=== PATIENT | male | born 1965 | race Caucasian/White ===

== ENCOUNTER 2024-09-24 18:45 | Emergency (ER) | payer MEDICAID, SELFPAY ==
[2024-09-24 19:26] VITALS: BP 164/93; PULSE 99; RESP 17; TEMP 36.7; O2SAT 96
[2024-09-24 19:27] VITALS: BMI 40.4
--- NOTE | 2024-09-24 19:31 | XR_ITS ---
Examination: CT abdomen and pelvis without contrast. Coronal 3-D reconstructions. Sagittal 2-D reconstructions. Date and time of exam:September 24, 2024 1952 hrs. Comparison July 05, 2024 Indications: Left lower abdominal pain beginning 4 days ago CTDI: vol (mGy): 16.2 DLP: (mGycm): 1025 Technique: Axial images of the abdomen have been obtained, 3 mm slice thickness Intravenous contrast material has not been administered. Low dose protocols were performed. One or more of the following dose reduction techniques were used; automated exposure control, adjustment of the mA and/or KV according to patient size, use of iterative reconstruction technique. Findings: Cirrhosis, liver nodular in contour, no focal liver lesions No gallstones No splenic or pancreatic lesion 20 mm right adrenal nodule likely adenoma No renal or ureteral calculi, no hydronephrosis Normal appendix No bowel obstruction Contracted urinary bladder No significant prostatomegaly Moderate osteopenia Impression: Cirrhosis, no focal liver lesions No renal or ureteral calculi, no hydronephrosis Normal appendix No bowel obstruction
--- NOTE | 2024-09-24 19:32 | PD.EDRME ---
Rapid Medical Screening Exam E Arrival date/time: 09/24/24 18:45 59-year-old male with past medical history of umbilical hernia repair reports complaining of left lower quadrant pain with nausea that started 3 days ago. Chief Complaint: Abdominal Pain Time Seen by Provider: 09/24/24 19:22 Vital signs: Vital Signs Temperature 98.1 F 09/24/24 19:26 Pulse Rate 99 09/24/24 19:26 Respiratory Rate 17 09/24/24 19:26 Blood Pressure 164/93 H 09/24/24 19:26 Pulse Oximetry (%) 96 09/24/24 19:26 Oxygen Delivery Method Room Air 09/24/24 19:26 Vital signs reviewed by provider: Yes
[2024-09-24 21:03] LABS: Collection Type, Urine Clean Catch
[2024-09-24 21:04] LABS: Basophils % (Auto) 0 % (0-2.5); Eosinophils % (Auto) 1 % (0-10); Hematocrit 36.9 % (41.0-53.0); Hemoglobin 13.1 g/dL (13.5-16.0); Immature Granulocytes % (Auto) 0 % (0-0); Immature Granulocytes Auto 0.02 Thou/mm3 (0.00-0.00); Lymphocytes # (Auto) 1.3 Thou/mm3 (1.0-4.8); Lymphocytes % (Auto) 16 % (10-50); Mean Corpuscular HGB Conc 35.5 g/dl (31.0-37.0); Mean Corpuscular Volume 93 fL (80-100); Monocytes # (Auto) 0.7 Thou/mm3 (0.0-0.8); Monocytes % (Auto) 8 % (0-12); Neutrophils # (Auto) 6.1 Thou/mm3 (1.8-7.7); Neutrophils % (Auto) 75 % (37-80); Nucleated Red Blood Cell % 0 /100 WBC (0); Platelet Count 114 Thou/mm3 (140-440); Red Blood Count 3.97 Miln/mm3 (4.50-5.90); White Blood Count 8.2 Thou/mm3 (3.8-10.6)
[2024-09-24 21:13] LABS: Bacteria,Urine Rare; Bilirubin,Urine 1+ (Negative); Blood,Urine Negative (Negative); Calcium Oxalate Crystals,Urine 4+; Clarity,Urine Turbid (Clear/Hazy); Color,Urine Drk-Yellow (Lt Yel-Yel); Glucose, Urine Negative (Negative); Hyaline Casts,Urine < 1 /hpf (0-1); Ketones,Urine Negative (Negative); Leukocyte Esterase,Urine Positive (Negative); Nitrite,Urine Negative (Negative); PH,Urine 6.5 (5.0-7.0); Protein,Urine 1+ (Neg - Trace); RBC,Urine 7 /hpf (0-3); Squamous Epithelial Cell,Urine 2 /hpf (0-5); WBC,Urine 27 /hpf (0-5)
[2024-09-24 21:17] LABS: Culture Indicated,Urine Yes
[2024-09-24 21:19] LABS: Amphetamine/Methamp Scrn,U Negative (Negative); Barbiturate Screen,Urine Negative (Negative); Benzodiazepines Screen,Urine Negative (Negative); Benzoylecgonine Screen, Ur Negative (Negative); Fentanyl Screen,Urine Negative (Negative); Opiate Screen,Urine Negative (Negative); THC Screen,Urine Positive (Negative)
[2024-09-24 21:21] LABS: Alanine Aminotransferase 42 U/L (10-49); Albumin, Serum 4.1 gm/dL (3.4-4.8); Albumin/Globulin Ratio 1.4 (1.2-2.2); Alkaline Phosphatase 105 U/L (46-116); Anion Gap 10 (7-16); Aspartate Amino Transferase 60 U/L (0-34); BUN/Creatinine Ratio 13 Ratio (12-20); Bilirubin,Total 3.7 mg/dL (0.3-1.2); Blood Urea Nitrogen 12 mg/dL (9-23); Calcium 10.4 mg/dL (8.3-10.6); Calcium (Corrected) 10.4 mg/dL (8.5-10.1); Carbon Dioxide 20.8 mMol/L (20.0-31.0); Chloride 111 mMol/L (98-107); Creatinine (Component) 0.9 mg/dL (0.6-1.3); Estimated Creatinine Clearance 105.4 mL/min (>60); Globulin 2.9 gm/dL (2.3-3.5); Glucose 89 mg/dL (74-106); Lipase 70 U/L (12-53); Osmolality,Calculated 281 (275-295); Potassium 3.4 mMol/L (3.4-5.1); Sodium 142 mMol/L (136-145); eGFR > 60 See Note
--- NOTE | 2024-09-24 23:17 | PC.NURSE ---
PT WALKED UP TO NURSES STATION. PT UPSET WITH ENCOUNTER WITH STATES HE IS LEAVING AND WILL CALL AN AMBULANCE IF SYMPTOMS GET WORSE.
--- NOTE | 2024-09-24 23:41 | EDNOTE_ITS ---
ED Abdominal Pain RME/HPI General Chief Complaint: Abdominal Pain Stated complaint: MID ABD. PAIN WITH NAUSEA Time seen by provider: 09/24/24 19:22 Arrival date/time: 09/24/24 18:45 Source: patient Mode of arrival: ambulatory Limitations: no limitations RME / HPI RME / HPI narrative: 09/24/24 18:45 59-year-old male with past medical history of umbilical hernia repair reports complaining of left lower quadrant pain with nausea that started [address] Nix?s Main ED Evaluation: 59-year-old male, reluctant to give history to why he came, but noting that he felt a ?tear when he bent over , he would not further qualify or allow me to examine him stating that I should just tell him what?s in the CT. I advised him that it would be prudent to have a full encounter, including subjective examination, and objective findings. He became very agitated when he has calmed down. Patient eloped. Related Data Home Medications ?Medication ?Instructions ?Recorded ?Confirmed lamotrigine 50 mg disintegrating 25 mg PO BID 03/02/24 07/09/24 tablet omeprazole 40 mg capsule,delayed 40 mg PO QDAY 03/03/24 07/09/24 release febuxostat 80 mg tablet 80 mg PO QDAY 07/09/24 07/09/24 gabapentin 300 mg capsule 300 mg PO QDAY 07/09/24 07/09/24 loratadine 10 mg tablet 10 mg PO QDAY 07/09/24 07/09/24 meloxicam 15 mg tablet 15 mg PO QDAY 07/09/24 07/09/24 naltrexone 50 mg tablet 50 mg PO QDAY 07/09/24 07/09/24 Previous Rx's ?Medication ?Instructions ?Recorded thiamine mononitrate (vit B1) 100 100 mg PO QDAY 30 days #30 tabs 07/10/24 mg tablet Allergies Allergy/AdvReac Type Severity Reaction Status Date / Time lisinopril Allergy Severe Swelling Verified 09/24/24 18:48 of Lip/Tongue/Throat Review of Systems Review of Systems Systems Reviewed: All systems reviewed, normal except as documented Past Medical History Past Medical History NEUROLOGIC: Negative Neurological Disorders, Cerebrovascular Accident, Alzheimer's Disease or Seizures CARDIAC: Positive Cardiac Disorders, Hypercholesterolemia and Hypertension; Negative Congestive Heart Failure RESPIRATORY: Negative Chronic Obstructive Pulmonary Disease (COPD) or Asthma GASTROINTESTINAL: Positive Gastrointestinal Disorders, Ulcer, Gastroesophageal Reflux Disease and Obesity; Negative Liver Cancer, Pancreatic Cancer or Gall Bladder Disease GENITOURINARY: Negative Genitourinary Disorders or Renal Disease REPRODUCTIVE: Negative Testicular Cancer MUSCULOSKELETAL: Positive Musculoskeletal Disorders, Arthritis and Gout; Negative Muscular Dystrophy or Bone Cancer ENT: Positive Cataracts ENDOCRINE: Negative Endocrine Disorders, Diabetes Mellitus Type 1 or Diabetes Mellitus Type 2 HEMATOLOGIC: Negative Blood Disorders or Sickle Cell Disease PSYCHO/SOCIAL: Positive Bipolar Disorder OTHER HISTORY: Negative Hospitalization, Autoimmune Disease, Down Syndrome, Developmental Delay, Falls, Blood Transfusions, Anesthesia Reactions, Chicken Pox, Measles, Mumps, Cancer or Testicular Cancer Family History FAMILY HISTORY: Positive Family Surgery; Negative Family Respiratory Disorders, Family Cardiac Disorders, Family Gastrointestinal Problems, Family Cancer or Family Anesthesia Reaction Surgical History SURGICAL: Positive Abdominal Surgery; Negative Vasectomy Social History SMOKING STATUS: Never smoker SECOND HAND EXPOSURE: Yes SUBSTANCE USE: marijuana (occ) ED Exam Narrative Physical exam: GENERAL APPEARANCE: AxOx4, generally well-appearing, no acute distress. HEENT: NC, AT. MMM. EOMI, clear conjunctiva, oropharynx clear. NECK: Supple without lymphadenopathy. No stiffness or restricted ROM. HEART: Normal rate and regular rhythm, normal S1/S1, no m/r/g LUNGS: CTAB, moving air well. No crackles or wheezes are heard. ABDOMEN: Soft, nontender, nondistended with good bowel sounds heard. BACK: No midline C/T/L spine pain or deformity, No CVAT, no obvious deformity. EXTREMITIES: Without cyanosis, clubbing or edema. MUSCULOSKELETAL: FROM of all major joints, no chest tenderness NEUROLOGICAL: Grossly nonfocal. Alert and oriented, moving all 4 extremities. CN not formally tested but appear grossly intact. Observed to ambulate with normal gait. Skin: Warm and dry without any rash. General Limitations: Present no limitations Course Quality Measures none Orders Category Date Time Status CT abdomen pelvis wo con Stat Exams 09/24/24 19:31 Completed CBC Stat Lab 09/24/24 20:39 Completed CMP [Comprehensive Metabolic Panel] Stat Lab 09/24/24 20:39 Completed Drug Screen,Urine Stat Lab 09/24/24 20:50 Completed Lipase Stat Lab 09/24/24 20:39 Completed Urinalysis, C/S if Indicated Stat Lab 09/24/24 20:50 Completed Urine Culture Stat Lab 09/24/24 20:50 Received Vital Signs Vital signs: Vital Signs Temperature 98.1 F 09/24/24 19:26 Pulse Rate 99 09/24/24 19:26 Respiratory Rate 17 09/24/24 19:26 Blood Pressure 164/93 H 09/24/24 19:26 Pulse Oximetry (%) 96 09/24/24 19:26 Oxygen Delivery Method Room Air 09/24/24 19:26 Abdominal Pain MDM MDM Narrative MDM Narrative:: Patient eloped. Scribe Attestation: I, Migue Pendleton am scribing for and in the presence of Dr. Nix. Provider Notation: Although this document has been carefully reviewed, there may still be some phonetic and other typographical errors. These errors are purely grammatical due to imperfections in the software program and should not be construed in any way to compromise the substance of the patient's medical care during this visit. Patient data External records reviewed:: [facility] previous records Clinical information provided by:: patient Social determinants that could affect healthcare access:: none (substance and alcohol use) Patient has the following chronic illnesses:: HTN, HLD, gout, bipolar disorder, GERD, umbilical hernia s/p appendectomy and s/p abdominal exploratory laparotomy and substance use disorder (last drank alcohol on 07/04/2024, drinks a fifth of whiskey a day) How is presenting disease/condition affected by chronic disease/condition?: exacerbated by Evaluation data The following diagnostics were reviewed and interpreted by me:: lab results and radiology exam(s) Lab and/or radiology exams considered but not ordered:: None Interpretation Summary: I personally reviewed the radiology data and agree with the radiologist's interpretation. Examination: CT abdomen and pelvis without contrast. Coronal 3-D reconstructions. Sagittal 2-D reconstructions. Date and time of exam:September 24, 2024 1952 hrs. Comparison July 05, 2024 Indications: Left lower abdominal pain beginning 4 days ago Findings: Cirrhosis, liver nodular in contour, no focal liver lesions No gallstones No splenic or pancreatic lesion 20 mm right adrenal nodule likely adenoma No renal or ureteral calculi, no hydronephrosis Normal appendix No bowel obstruction Contracted urinary bladder No significant prostatomegaly Moderate osteopenia Impression: Cirrhosis, no focal liver lesions No renal or ureteral calculi, no hydronephrosis Normal appendix No bowel obstruction Dictated By: Gigi Mix MD Medications / Prescriptions Medications or Prescriptions considered but not ordered:: None Medication administrations:: As above Consultations Consultation(s) initiated? (list below): No Diagnosis Differential diagnosis abdominal pain: abdominal pain, constipation and gastroenteritis Most likely diagnosis given after review of the tests above:: Abdominal pain Admission Indicated Admission indicated?: not indicated Explain why admission is indicated or not indicated:: Patient eloped Admission Request Was there a request for admission?: No Disposition Plan Disposition Plan: other (specify) (Eloped) Discharge Plan Plan Patient Disposition: Elopement Prescriptions/Referrals Prescriptions/Med Rec: No Action meloxicam 15 mg tablet 15 mg PO QDAY Patient Comments: take 1 tablet by mouth once daily naltrexone 50 mg tablet 50 mg PO QDAY gabapentin 300 mg capsule 300 mg PO QDAY Patient Comments: take 1 capsule by mouth once daily loratadine 10 mg tablet 10 mg PO QDAY Patient Comments: take 1 tablet by mouth once daily febuxostat 80 mg tablet 80 mg PO QDAY Patient Comments: take 1 tablet by mouth once daily thiamine mononitrate (vit B1) 100 mg Tablet 100 mg PO QDAY 30 Days Qty: 30 1RF lamotrigine 50 mg tablet,disintegrating 25 mg PO BID Patient Comments: DISSOLVE 1 TABLET ON TONGUE TWICE A DAY omeprazole 40 mg capsule,delayed release(DR/EC) 40 mg PO QDAY Patient Comments: take 1 capsule by mouth every morning 30 MINUTES BEFORE MORNING MEAL Referrals: Stepan Alves MD [Primary Care Provider] - In 1 week Problem List Clinical Impression: Abdominal pain Patient/Caregiver Discharge Instructions Print Language: Georgian
== END 2024-09-24 23:17 | disposition left against medical advice (07) ==
PROVIDERS: Emergency Provider Emergency Medicine; PCP Family Medicine
DX: K74.60 Unspecified cirrhosis of liver (principal)
CPT/HCPCS: 36415; 74176; 80053; 80307; 81001; 83690; 85025; 87086; 99281

== ENCOUNTER 2024-09-29 21:30 | Emergency (ER) | payer MEDICAID, SELFPAY ==
[2024-09-29 21:31] VITALS: BMI 39.1
[2024-09-29 21:43] VITALS: BP 151/89; PULSE 85; RESP 19; TEMP 36.8; O2SAT 99
--- NOTE | 2024-09-29 21:48 | XR_ITS ---
Examination: Duplex scan of the upper extremity, unilateral right Date and time of exam: September 29, 2024 1112 hrs. Indications: Onset right forearm redness swelling and pain beginning one week ago Technique: Duplex scan of the extremity veins using B-mode/grayscale imaging and Doppler spectral analysis and color flow Attention is directed to internal echogenicity, compression and augmentation involving these veins, color flow assessment, spectral analysis Findings: Major deep venous structures in the extremity demonstrate normal course and caliber. There is no evidence of deep vein thrombosis. Normal color flow and spectral analysis Impression: Negative for DVT..
--- NOTE | 2024-09-29 21:48 | PD.EDRME ---
Rapid Medical Screening Exam RME Arrival date/time: 09/29/24 21:30 59M with history of HTN, psych, GERD and alcohol/drug use presents to ED with RUE pain, swelling, and redness. Patient states he had a MRSA skin infection beofre that looked like this. Chief Complaint: Skin/Abscess/Foreign Body Time Seen by Provider: 09/29/24 23:59 Vital signs: Vital Signs Temperature 98.3 F 09/29/24 21:43 Pulse Rate 85 09/29/24 21:43 Respiratory Rate 19 09/29/24 21:43 Blood Pressure 151/89 H 09/29/24 21:43 Pulse Oximetry (%) 99 09/29/24 21:43 Oxygen Delivery Method Room Air 09/29/24 21:43
[2024-09-29 22:52] LABS: Basophils % (Auto) 0 % (0-2.5); Eosinophils # (Auto) 0.1 Thou/mm3 (0.0-0.5); Eosinophils % (Auto) 0 % (0-10); Hematocrit 37.3 % (41.0-53.0); Hemoglobin 13.2 g/dL (13.5-16.0); Immature Granulocytes % (Auto) 1 % (0-0); Immature Granulocytes Auto 0.07 Thou/mm3 (0.00-0.00); Lymphocytes # (Auto) 1.3 Thou/mm3 (1.0-4.8); Lymphocytes % (Auto) 12 % (10-50); Mean Corpuscular HGB Conc 35.4 g/dl (31.0-37.0); Mean Corpuscular Volume 96 fL (80-100); Monocytes % (Auto) 9 % (0-12); Neutrophils # (Auto) 8.7 Thou/mm3 (1.8-7.7); Neutrophils % (Auto) 78 % (37-80); Nucleated Red Blood Cell % 0 /100 WBC (0); Platelet Count 90 Thou/mm3 (140-440); RDW Standard Deviation 62.3 fL (35.1-43.9); Red Blood Count 3.88 Miln/mm3 (4.50-5.90); White Blood Count 11.2 Thou/mm3 (3.8-10.6)
[2024-09-29 23:17] LABS: Alanine Aminotransferase 36 U/L (10-49); Albumin, Serum 3.9 gm/dL (3.4-4.8); Albumin/Globulin Ratio 1.3 (1.2-2.2); Alkaline Phosphatase 113 U/L (46-116); Anion Gap 9 (7-16); Aspartate Amino Transferase 48 U/L (0-34); BUN/Creatinine Ratio 11 Ratio (12-20); Bilirubin,Total 3.1 mg/dL (0.3-1.2); Blood Urea Nitrogen 8 mg/dL (9-23); Calcium 9.9 mg/dL (8.3-10.6); Carbon Dioxide 18.8 mMol/L (20.0-31.0); Chloride 109 mMol/L (98-107); Creatinine (Component) 0.7 mg/dL (0.6-1.3); Estimated Creatinine Clearance 133.3 mL/min (>60); Glucose 68 mg/dL (74-106); Osmolality,Calculated 270 (275-295); Potassium 3.9 mMol/L (3.4-5.1); Sodium 137 mMol/L (136-145); Total Protein 6.9 gm/dL (5.7-8.2); eGFR > 60 See Note
[2024-09-29 23:28] LABS: C-Reactive Protein 1.8 mg/dL (0.0-0.9)
[2024-09-29 23:35] LABS: Sed Rate (ESR) 20 mm/hr (0-20)
--- NOTE | 2024-09-29 23:59 | PD.EDSKIN ---
ED Skin Abcess FB-RME/HPI General Chief complaint: Skin/Abscess/Foreign Body Stated complaint: RIGHT ARM REDNESS AND SWELLING Time Seen by Provider: 09/29/24 23:59 Arrival date/time: 09/29/24 21:30 59M with history of HTN, psych, GERD and alcohol/drug use presents to ED with RUE pain, swelling, and redness. Patient states he had a MRSA skin infection before that looked like this. Limitations: no limitations Related Data Home Medications ?Medication ?Instructions ?Recorded ?Confirmed lamotrigine 50 mg disintegrating 25 mg PO BID 03/02/24 07/09/24 tablet omeprazole 40 mg capsule,delayed 40 mg PO QDAY 03/03/24 07/09/24 release febuxostat 80 mg tablet 80 mg PO QDAY 07/09/24 07/09/24 gabapentin 300 mg capsule 300 mg PO QDAY 07/09/24 07/09/24 loratadine 10 mg tablet 10 mg PO QDAY 07/09/24 07/09/24 meloxicam 15 mg tablet 15 mg PO QDAY 07/09/24 07/09/24 naltrexone 50 mg tablet 50 mg PO QDAY 07/09/24 07/09/24 Previous Rx's ?Medication ?Instructions ?Recorded thiamine mononitrate (vit B1) 100 100 mg PO QDAY 30 days #30 tabs 07/10/24 mg tablet clindamycin HCl 300 mg capsule 600 mg (2 x 300 mg) PO BID 7 days 09/30/24 #28 caps Allergies Allergy/AdvReac Type Severity Reaction Status Date / Time lisinopril Allergy Severe Swelling Verified 09/29/24 21:34 of Lip/Tongue/Throat Review of Systems Review of Systems Systems Reviewed: All systems reviewed, normal except as documented Constitutional Constitutional: Reports system reviewed and no additional complaints, except as documented, Denies fever(s) and Denies headache(s) ENT Ears, Nose, Mouth, and Throat: Denies disequilibrium and Denies headache(s) Cardiovascular Cardiovascular: Reports system reviewed and no additional complaints, except as documented, Denies chest pain and Denies dyspnea Respiratory Respiratory: Reports system reviewed and no additional complaints, except as documented, Denies cough and Denies dyspnea Gastrointestinal Gastrointestinal: Reports system reviewed and no additional complaints, except as documented, Denies abdominal pain, Denies nausea and Denies vomiting Integumentary/Breasts Skin/Breast: Reports as per HPI and Reports skin pain Neurologic Neurologic: Reports system reviewed and no additional complaints, except as documented, Denies confusion, Denies disequilibrium and Denies headache(s) Psychiatric Psychiatric: Denies confusion Past Medical History Past Medical History NEUROLOGIC: Negative Neurological Disorders, Cerebrovascular Accident, Alzheimer's Disease or Seizures CARDIAC: Positive Cardiac Disorders, Hypercholesterolemia and Hypertension; Negative Congestive Heart Failure RESPIRATORY: Negative Chronic Obstructive Pulmonary Disease (COPD) or Asthma GASTROINTESTINAL: Positive Gastrointestinal Disorders, Ulcer, Gastroesophageal Reflux Disease and Obesity; Negative Liver Cancer, Pancreatic Cancer or Gall Bladder Disease GENITOURINARY: Negative Genitourinary Disorders or Renal Disease REPRODUCTIVE: Negative Testicular Cancer MUSCULOSKELETAL: Positive Musculoskeletal Disorders, Arthritis and Gout; Negative Muscular Dystrophy or Bone Cancer ENT: Positive Cataracts ENDOCRINE: Negative Endocrine Disorders, Diabetes Mellitus Type 1 or Diabetes Mellitus Type 2 HEMATOLOGIC: Negative Blood Disorders or Sickle Cell Disease PSYCHO/SOCIAL: Positive Bipolar Disorder OTHER HISTORY: Negative Hospitalization, Autoimmune Disease, Down Syndrome, Developmental Delay, Falls, Blood Transfusions, Anesthesia Reactions, Chicken Pox, Measles, Mumps, Cancer or Testicular Cancer Family History FAMILY HISTORY: Positive Family Surgery; Negative Family Respiratory Disorders, Family Cardiac Disorders, Family Gastrointestinal Problems, Family Cancer or Family Anesthesia Reaction Surgical History SURGICAL: Positive Abdominal Surgery; Negative Vasectomy Social History SMOKING STATUS: Never smoker SECOND HAND EXPOSURE: Yes SUBSTANCE USE: marijuana (occ) ED Exam General Limitations: Present no limitations General appearance: Present alert and in no apparent distress Head Head exam: Present atraumatic Eye Eye exam: Present normal appearance, PERRL and EOMI ENT ENT exam: Present normal exam, normal oropharynx and mucous membranes moist Neck Neck exam: Present normal inspection, full ROM and trachea midline Chest Chest inspection: Present normal inspection and symmetric chest wall rise Respiratory Respiratory exam: Present normal lung sounds bilaterally Cardiovascular Cardiovascular exam: Present regular rate, normal rhythm and normal heart sounds Abdominal Exam Abdominal exam: Present soft and normal bowel sounds Extremities Exam Extremities exam: Present full ROM Expanded Upper Extremity Exam Forearm/Wrist exam: Present full ROM (R), tenderness, swelling and erythema Back Exam Back exam: Present normal inspection and full ROM Neurological Exam Neurological exam: Present alert, oriented X3 and CN II-XII intact Psychiatric Psychiatric exam: Present normal affect and normal mood Skin Skin exam: Present warm, dry, intact and normal color Course Quality Measures none Orders Category Date Time Status US venous doppler UE RT Stat Exams 09/29/24 21:48 Completed CBC Stat Lab 09/29/24 22:15 Completed CMP [Comprehensive Metabolic Panel] Stat Lab 09/29/24 22:15 Completed CRP [C-Reactive Protein] Stat Lab 09/29/24 22:15 Completed ESR [Sed Rate (ESR)] Stat Lab 09/29/24 22:15 Completed Clindamycin Vial [Cleocin vial] Med 09/30/24 00:00 Discontinued 600 mg IM X1 ONE Vital Signs Vital signs: Vital Signs Temperature 98.3 F 09/29/24 21:43 Pulse Rate 85 09/29/24 21:43 Respiratory Rate 19 09/29/24 21:43 Blood Pressure 151/89 H 09/29/24 21:43 Pulse Oximetry (%) 99 09/29/24 21:43 Oxygen Delivery Method Room Air 09/29/24 21:43 O2 at 99% on RA and WNLs Skin / Abscess / Foreign Body MDM Narrative MDM Narrative:: 59M with history of HTN, psych, GERD and alcohol/drug use presents to ED with RUE pain, swelling, and redness. Patient states he had a MRSA skin infection before that looked like this. Physical exam reveals R forearm redness, tenderness, and swelling. No obvious area of fluctuance. Patient is afebrile, calm, and alert. US no DVT. Very minimal leukocytosis. Likely cellulitis. Patient data External records reviewed:: [facility] previous records Clinical information provided by:: patient Social determinants that could affect healthcare access:: substance use Patient has the following chronic illnesses:: HTN, psych, GERD and alcohol/drug use How is presenting disease/condition affected by chronic disease/condition?: exacerbated by Evaluation data The following diagnostics were reviewed and interpreted by me:: lab results and radiology exam(s) Lab and/or radiology exams considered but not ordered:: ordered Interpretation Summary: above Medications / Prescriptions Medications or Prescriptions considered but not ordered:: ordered Medication administrations:: Medication Administration History Discontinued Medications Clindamycin Phosphate (Clindamycin Phos Inj 150 Mg/Ml Vial 6 Ml) 600 mg IM X1 ONE Stop: 09/30/24 00:01 above Consultations Consultation(s) initiated? (list below): No Diagnosis Skin/Abscess Differential Diagnosis: abscess of skin or subcutaneous tissue, viral exanthem, dermatophytosis, urticaria, herpes zoster, allergic reaction to drug, cellulitis, eczema, insect bites, impetigo, contact dermatitis and other (DVT) Most likely diagnosis given after review of the tests above:: cellulitis Admission Indicated Admission indicated?: not indicated Admission Request Was there a request for admission?: No Disposition Plan Disposition Plan: Discharge Discharge Attestation Discharge Attestation: The patient and all family members were given an opportunity to ask questions and understood the discharge instructions. Discharge instructions specifically effects, indications for sooner follow up or return to the emergency department, and the expected course of current diagnosis. Patient condition: Stable Discharge Plan Plan Patient Disposition: HOME (Self Care) Disposition Comment: Stable Prescriptions/Referrals Prescriptions/Med Rec: New clindamycin HCl 300 mg capsule 600 mg PO BID 7 Days Qty: 28 0RF No Action meloxicam 15 mg tablet 15 mg PO QDAY Patient Comments: take 1 tablet by mouth once daily naltrexone 50 mg tablet 50 mg PO QDAY gabapentin 300 mg capsule 300 mg PO QDAY Patient Comments: take 1 capsule by mouth once daily loratadine 10 mg tablet 10 mg PO QDAY Patient Comments: take 1 tablet by mouth once daily febuxostat 80 mg tablet 80 mg PO QDAY Patient Comments: take 1 tablet by mouth once daily thiamine mononitrate (vit B1) 100 mg Tablet 100 mg PO QDAY 30 Days Qty: 30 1RF lamotrigine 50 mg tablet,disintegrating 25 mg PO BID Patient Comments: DISSOLVE 1 TABLET ON TONGUE TWICE A DAY omeprazole 40 mg capsule,delayed release(DR/EC) 40 mg PO QDAY Patient Comments: take 1 capsule by mouth every morning 30 MINUTES BEFORE MORNING MEAL Referrals: Stepan Alves MD [Primary Care Provider] - In 1 week Problem List Clinical Impression: Cellulitis Patient/Caregiver Discharge Instructions Additional Instructions: Please follow-up with PCP within 24-48 hours and return immediately if symptoms worsen. Print Language: German Stand Alone Forms: Patient Portal Info Letter PA/ERYN Supervising Physician JOSE DAVID/ERYN Supervising Physician: Dr. Aj
[2024-09-30 00:13] VITALS: BP 187/77; PULSE 77; RESP 18; TEMP 37; O2SAT 98
[2024-09-30] MEDS: CLINDAMYCIN PHOS INJ 150 MG/ML VIAL 6 ML 600 MG IM (00:14)
== END 2024-09-30 00:19 | disposition home or self-care (01) ==
PROVIDERS: Physician Assistant; Emergency Provider Emergency Medicine; PCP Family Medicine
DX: L03.113 Cellulitis of right upper limb (principal)
CPT/HCPCS: 36415; 80053; 85025; 85652; 86140; 93971; 96372; 99284; J0736

== ENCOUNTER → 2025-10-21 | Outpatient (CLI) | payer MEDICAID, SELFPAY ==
--- NOTE | 2025-10-21 15:59 | XR_ITS ---
EXAMINATION: AP bilateral knees single view TECHNIQUE: Standing AP bilateral knees single view Date and time: May 21, 2025, 1641 hours INDICATIONS: Bilateral knee pain beginning 5 years ago FINDINGS: Advanced narrowing medial lateral joint spaces right knee No fracture Total left knee arthroplasty with satisfactory alignment No loosening of the prosthetic components IMPRESSION: Advanced narrowing medial and lateral joint spaces right knee
== END | disposition home or self-care (01) ==
PROVIDERS: PCP Family Medicine; Referring Provider Family Medicine; Visit Provider Family Medicine
DX: M25.861 Other specified joint disorders, right knee (principal); M25.562 Pain in left knee
CPT/HCPCS: 73565